=== PATIENT | female | born 1985 | race Caucasian/White ===

== ENCOUNTER 2018-07-03 10:00 | Inpatient (IN) | payer BC, OTHER ==
[2018-07-03] MEDS ORDERED: NIFEdipine 10 MG CAP PO PRN ×3 (11:11→11:29)
[2018-07-03] MEDS: BETAMETHASONE IM SYRINGE IM SCH (11:17)
--- NOTE | 2018-07-03 11:48 | PDGENHP ---
History and Physical - Chief Complaint labor - History of Present Illness Jasmine is a 32 yo G1 today at 32w4d by REMEDIOS of 08/24/18 by 9wk US (now c/w LMP, redated) who presented to L&D early this AM with painful, regular ctx's. She reports that she had been having some degree of painful cramping for this whole past week - was seen in clinic with the CNM's and had a cervical exam two days ago that was closed/reassuring, NST performed at that time not pickup up regular ctx's - advised to observe things, rest, hydrate. She reports that cramping intensified yesterday (Thursday) into today and she's newly noticed brown to light red bleeding that's been new this AM. Breathing through some but not all contractions upon arrival to the unit. No other obvious precipitating factors this past week. No illness, no trauma, etc. Has been feeling fine other than these menstrual like cramps. Denies any new UTI sx. Jasmine transferred care to [facility] two weeks ago at 30 wks from [facility]. 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 She has hypothyroidsm/Meg's, on 30mg Nature-Thyroid most recently. Also takes DHA and PNV. 20 wk anatomy scan: Normal anatomy, Posterior placenta. Male. Labs: A pos Antibody neg RPR reactive, but Trep neg Rubella immune Hep B neg HIV neg TSH 3.25 AFP normal Glucola 80 GBS unknown on admission History Information - Allergies/Home Medication List Allergies/Adverse Reactions: aspirin Allergy (Verified 07/03/18 11:01) Home Medications: Docosahexanoic Acid [Dha] 1 cap PO DAILY 07/03/18 [Last Taken Unknown] Herbals/Supplements -Info Only 1 ea PO DAILY 07/03/18 [Last Taken Unknown] Vit27&Calcium/Iron/FA [] 1 tab PO DAILY 07/03/18 [Last Taken Unknown] I have personally reviewed and updated: family history, medical history, social history, surgical history Past Medical History: Meg's thyroiditis - Surgical History Additional surgical history: None - Family History Positive for: non-pertinent - Social History Smoking Status: Never smoked Alcohol Use: None Drug Use: None Review of Systems Review of Systems: ROS: 10pt was reviewed & negative except for what was stated in HPI & below Physical Exam Physical Exam: On initial exam she appears comfortable, but nervous. She does breath through some contractions. Initial SCE by Nancy AVLARADO 2/bulging bag (no obvious presenting part). FHR 130s, mod donn, accels present by GA criteria, no decels. [place] q 5-7minutes. Beside by Nancy transverse position with head on maternal left. Lab Data & Imaging Review 07/03/18 11:45 Laboratory Tests 07/03/18 07/03/18 07/03/18 11:30 11:45 14:30 WBC 12.88 H Hgb 14.6 Hct 43.0 Plt Count 160 Urine Color YELLOW Urine Appearance CLEAR Urine pH 7.0 Ur Specific Bland 1.005 Urine Protein NEGATIVE Urine Ketones 1+ H Urine Blood NEGATIVE Urine Nitrate NEGATIVE Urine Bilirubin NEGATIVE Urine Urobilinogen NEGATIVE Ur Leukocyte Esterase NEGATIVE Urine Glucose NEGATIVE Angela species DNA Gardnerella DNA Probe Group B Strep DNA Pending Trichomonas DNA Probe 07/03/18 16:50 WBC Hgb Hct Plt Count Urine Color Urine Appearance Urine pH Ur Specific Bland Urine Protein Urine Ketones Urine Blood Urine Nitrate Urine Bilirubin Urine Urobilinogen Ur Leukocyte Esterase Urine Glucose Angela species DNA Pending Gardnerella DNA Probe Pending Group B Strep DNA Trichomonas DNA Probe Pending Assessment & Plan Assessment: 32 yo G1 at 32w4d who presents in labor, dilated to 2cm with bulging bag and regular painful ctx's. Clinically she does appear to be in early labor - having regular painful ctx's and vaginal bleeding. She has changed her cervix to 2cm and 75% from being closed in clinic just 2 days prior. Long discussion with Jasmine and Dk regarding dx of PTL and planned interventions. - Nifedipine IR loading protocol (20mg, then 10mg q 20 minutes until noticing change in pattern, max dose of 60mg) - followed by 10-20mg q 4-6 hrs maintenance after that. - BMZ x 2 now. - GBS collected, vaginitis panel collected, initial clean catch urine ? contaminated, straight cath collected. - NICU consult. - Discussed that position is currently transverse - we could potentially attempt a version if she does declare herself. I did call and speak with on- call [facility] physician at [place] who agreed that an attempt at version could be reasonable at this gestational age. - CEFM for now, NPO until we see how things settle down. - CBC, Type & Screen. - Cont nature thyroid. JM
[2018-07-03] MEDS: NIFEdipine 10 MG CAP PO PRN ×2 (12:02→12:36)
[2018-07-03 12:28] LABS: PLATELET COUNT 160 10^3/uL (150-400)
[2018-07-03] MEDS: LR 1,000 ML IV SCH ×2 (12:30→16:43)
[2018-07-03] MEDS: NIFEdipine 10 MG CAP PO SCH ×2 (16:28→20:26)
[2018-07-03] MEDS ORDERED: LIDOCAINE 1% 300 MG/30 ML SDV ONE (18:00)
[2018-07-03] MEDS ORDERED: TERBUTALINE SULFATE 1 MG/ML VIAL ONE (18:01)
[2018-07-03] MEDS ORDERED: OXYTOCIN 10 UNIT/ML VIAL ONE (18:01)
[2018-07-03] MEDS ORDERED: AMMONIA AROMATIC 1 EACH AMP IH ONE (18:01)
[2018-07-03] MEDS ORDERED: OLIVE OIL 118 ML BTL MISC ONE (18:01)
[2018-07-03] MEDS ORDERED: MISOPROSTOL 200 MCG TAB ONE (18:01)
[2018-07-04] MEDS: NIFEdipine 10 MG CAP PO SCH ×6 (00:31→21:04)
--- NOTE | 2018-07-04 07:00 | OBPROG ---
Labor Progress Note Assessment/Plan: Assessment: 32 yo G1 at 32w5d who presents in labor, dilated to 2cm with bulging bag and regular painful ctx's. - Continue Nifedipine IR loading protocol (20mg, then 10mg q 20 minutes until noticing change in pattern, max dose of 60mg) - followed by 10-20mg q 4-6 hrs maintenance after that. - BMZ#2 today, will be through her window tomorrow at 1100. - GBS and vaginitis panel pending. - NICU consult. - Discussed that position is currently transverse - we could potentially attempt a version if she does declare herself. I did call and speak with on- call [facility] physician at [place] who agreed that an attempt at version could be reasonable at this gestational age. - TID EFMs. - Cont nature thyroid. If stable through Thursday will discuss plan of care w M re ongoing tocolytic therapy, etc. PEPITO Subjective/Intrapartum Course: Jasmine is in good spirits this morning - happily reports that she really can't feel her contractions at all. Maybe a rare uncomfortable ctx, but otherwise quite comfortable. Tolerating the nifedipine quite well also, really no GILLESPIE or side effects. Objective: 07/03/18 11:45 Patient ABO/Rh A POSITIVE 07/03/18 11:45 - FHR Assessment Riley FHR (bpm): 135 FHR Pattern Variability: Moderate FHR Category: 1 Oxytocin Orders Assessment - Pre-Induction/Augmentation Assessment Gestational Age: 32 week(s) and 4 day(s) ICD10 Worksheet Patient Problems: Problems Problem Status Onset Malpresentation of fetus Acute labor Acute uterine contractions in third trimester, antepartum Acute Status post primary low transverse section Acute
[2018-07-04] MEDS: THYROID 15 MG PO SCH (09:13)
[2018-07-04] MEDS: BETAMETHASONE IM SYRINGE IM SCH (11:07)
[2018-07-04] MEDS ORDERED: PRENATAL VIT 1 EACH TAB PO SCH (16:45)
[2018-07-04] MEDS: PRENATAL VIT 1 EACH TAB PO SCH (16:58)
[2018-07-04] MEDS ORDERED: DOCUSATE SODIUM 100 MG CAP PO ONE (17:03)
--- NOTE | 2018-07-04 20:01 | OBPROG ---
Labor Progress Note Assessment/Plan: Assessment: 32 y/o @ 32 4/7 weeks wth PTCs and cervical change upon admission - stable now HD #1 Plan: Continue current management GBS cx is negative Urine cx and BD affirm negative Pt is tolerating Nifedipine well, with no side effects FHTs - Cat II tracing with intermittent mild variable decels, but overall reassuring; continuous monitoring for now On toco, irritiability is noted and pt states 3 ctx's/hour and mild "more annoying" SCDs while in bed Will reassess in am 07/05 and if no further ctx's and pt remains stable, plan for d/c home with Procardia 07/04/18 20:08 Subjective/Intrapartum Course: Jasmine is in good spirits this morning - happily reports that she really can't feel her contractions at all. Maybe a rare uncomfortable ctx, but otherwise quite comfortable. Tolerating the nifedipine quite well also, really no GILLESPIE or side effects. 07/04/18 20:05 Pt is doing well with her at her side. States ctx's are mild 2/10 and "more annoying." She has felt them intermittently and at the most 3 ctx's/hr. Denies any LOF or any VB. Good FM noted by baby boy. Reviewed all negative testing results. Objective: 07/03/18 11:45 Patient ABO/Rh A POSITIVE 07/03/18 11:45 Group B Strep DNA NEGATIVE (NEGATIVE) 07/03/18 11:30 - Contraction Pattern Assessment Current Contraction Pattern: Other (Specify) (irritability) - FHR Assessment Riley FHR (bpm): 135 FHR Pattern Variability: Moderate FHR Category: 2 (intermittent mild variable decel) - Physical Exam General Appearance: WD/WN, alert, no apparent distress Abdomen: non-tender, soft, other (Gravid) Skin: normal color, warm/dry Neuro/Psych: alert, normal mood/affect, oriented x 3 Oxytocin Orders Assessment - Pre-Induction/Augmentation Assessment Gestational Age: 32 week(s) and 4 day(s) ICD10 Worksheet Patient Problems: Problems Problem Status Onset uterine contractions in third trimester, antepartum Acute - ICD10 Problem Qualifiers (1) uterine contractions in third trimester, antepartum
[2018-07-04] MEDS: DOCUSATE SODIUM 100 MG CAP PO SCH (21:03)
[2018-07-05] MEDS: NIFEdipine 10 MG CAP PO SCH ×6 (00:42→21:05)
[2018-07-05] MEDS: LR 1,000 ML IV SCH (05:47)
[2018-07-05] MEDS: PRENATAL VIT 1 EACH TAB PO SCH (09:08)
[2018-07-05] MEDS: THYROID 15 MG PO SCH (09:08)
[2018-07-05] MEDS: DOCUSATE SODIUM 100 MG CAP PO SCH ×2 (09:09→21:06)
--- NOTE | 2018-07-05 09:56 | OBPROG ---
Labor Progress Note Assessment/Plan: Assessment: 32 y/o @ 32 6/7 weeks wth PTCs and cervical change upon admission - stable now HD #2 Plan: Continue current management GBS cx is negative Urine cx and BD affirm negative s/p BTMZ 07/03 and 07/04 Pt is tolerating Nifedipine well, but did note increase, painful ctx's 1 hour before next dose was due, around midnight and now much improved FHTs - Cat II tracing with intermittent mild variable decels that became deeper and occ late decels; resuscitation performed-oxygen applied, fluid bolus and position change to left side with improvement in the strip and resolution in deep variable decels and late decels Strip is now reassuring with accels and moderate variability; will take off the monitor and do BID monitoring Plan for consult and u/s with MFM in am 07/0607/05/18 09:56 Subjective/Intrapartum Course: Jasmine is in good spirits this morning - happily reports that she really can't feel her contractions at all. Maybe a rare uncomfortable ctx, but otherwise quite comfortable. Tolerating the nifedipine quite well also, really no GILLESPIE or side effects. 07/04/18 20:05 Pt is doing well with her at her side. States ctx's are mild 2/10 and "more annoying." She has felt them intermittently and at the most 3 ctx's/hr. Denies any LOF or any VB. Good FM noted by baby boy. Reviewed all negative testing results. 07/05/18 10:00 Pt is feeling much better this morning, no further painful ctx's at this time. She had painful, regular ctx's around midnight with pain 8/10 one hour before Nifedipine dose was due. Good FM noted. Denies any LOF or VB. Alonso regular diet and had BM yesterday am. Objective: 07/03/18 11:45 Patient ABO/Rh A POSITIVE 07/03/18 11:45 Group B Strep DNA NEGATIVE (NEGATIVE) 07/03/18 11:30 - Contraction Pattern Assessment Current Contraction Pattern: Irregular - FHR Assessment Riley FHR (bpm): 135 FHR Pattern Variability: Moderate FHR Category: 1 - Physical Exam General Appearance: WD/WN, alert, no apparent distress Abdomen: non-tender, soft, other (gravid) Extremities: non-tender, normal inspection Skin: normal color, warm/dry Neuro/Psych: alert, normal mood/affect, oriented x 3 Oxytocin Orders Assessment - Pre-Induction/Augmentation Assessment Gestational Age: 32 week(s) and 4 day(s) ICD10 Worksheet Patient Problems: Problems Problem Status Onset uterine contractions in third trimester, antepartum Acute - ICD10 Problem Qualifiers (1) uterine contractions in third trimester, antepartum
[2018-07-05] MEDS: PRENATAL DHA PO SCH (17:08)
[2018-07-05] MEDS: ZINC GLUCONATE 30 MG PO SCH (17:12)
[2018-07-05] MEDS: Lactobacillus Acidophilus [Probiotic] 1 EACH PO SCH (17:13)
[2018-07-05] MEDS: SELENIUM 0.2 MG TAB PO SCH ×2 (17:14→17:15)
[2018-07-06] MEDS: NIFEdipine 10 MG CAP PO SCH ×4 (01:06→16:28)
[2018-07-06] MEDS: PRENATAL DHA PO SCH (09:30)
[2018-07-06] MEDS: DOCUSATE SODIUM 100 MG CAP PO SCH ×2 (09:30→21:41)
[2018-07-06] MEDS: THYROID 15 MG PO SCH (09:31)
[2018-07-06] MEDS: ZINC GLUCONATE 30 MG PO SCH (09:31)
[2018-07-06] MEDS: Lactobacillus Acidophilus [Probiotic] 1 EACH PO SCH (09:32)
[2018-07-06] MEDS: SELENIUM 0.2 MG TAB PO SCH (09:33)
--- NOTE | 2018-07-06 11:25 | OBPROG ---
Labor Progress Note Assessment/Plan: Assessment: 32 y/o @ 33 weeks with PTCs and cervical change upon admission - stable now HD #3 Plan: Continue current management Pt had changed her cervix to 2 cm and 75% from being closed in clinic just 2 days prior to admission on 07/03 GBS cx is negative Final urine cx and BD affirm negative s/p BTMZ 07/03 and 07/04 No FFN or u/s done for CL upon admission; will obtain FFN now since nothing in the vagina x 24 hours Pt is still tolerating Nifedipine well, but felt a "little queezy" this morning after getting it; she is getting it every 4 hours Pt states ctx's have been around every 5-6 minutes throughout size changer and pain 8/10; right now she is laying on her side and ctx's are not as painful - pt looks comfortable; no SVE done and ctx's palpate mild FHTs - Cat II tracing with intermittent mild variable decels, but reassuring with +accels and mod variability Plan for consult and u/s with MFM later this afternoon 07/06/18 11:31 Subjective/Intrapartum Course: Jasmine is in good spirits this morning - happily reports that she really can't feel her contractions at all. Maybe a rare uncomfortable ctx, but otherwise quite comfortable. Tolerating the nifedipine quite well also, really no GILLESPIE or side effects. 07/04/18 20:05 Pt is doing well with her at her side. States ctx's are mild 2/10 and "more annoying." She has felt them intermittently and at the most 3 ctx's/hr. Denies any LOF or any VB. Good FM noted by baby boy. Reviewed all negative testing results. 07/05/18 10:00 Pt is feeling much better this morning, no further painful ctx's at this time. She had painful, regular ctx's around midnight with pain 8/10 one hour before Nifedipine dose was due. Good FM noted. Denies any LOF or VB. Alonso regular diet and had BM yesterday am. 07/06/18 11:33 Pt seen and examined. She is resting on her left side; states ctx's were about every 5-6 min early this morning and pain 8/10; better now since on her side and receiving Procardia at 0900. She did feel a little nauseated after taking it , but no vomiting. Good FM noted. Denies any LOF or VB. Objective: 07/03/18 11:45 Patient ABO/Rh A POSITIVE 07/03/18 11:45 Group B Strep DNA NEGATIVE (NEGATIVE) 07/03/18 11:30 - Contraction Pattern Assessment Current Contraction Pattern: Irregular (q5-8 minutes) - FHR Assessment Riley FHR (bpm): 140 FHR Pattern Variability: Moderate FHR Category: 2 (mild intermitttent variable decels with lj to 110 bpm) - Physical Exam General Appearance: WD/WN, alert, no apparent distress Abdomen: non-tender, soft, other (gravid) Extremities: non-tender, normal inspection Skin: normal color, warm/dry Neuro/Psych: alert, normal mood/affect, oriented x 3 Oxytocin Orders Assessment - Pre-Induction/Augmentation Assessment Gestational Age: 32 week(s) and 4 day(s) ICD10 Worksheet Patient Problems: Problems Problem Status Onset uterine contractions in third trimester, antepartum Acute - ICD10 Problem Qualifiers (1) uterine contractions in third trimester, antepartum
[2018-07-06] MEDS: PRENATAL VIT 1 EACH TAB PO SCH (11:54)
[2018-07-06] MEDS ORDERED: ceFAZolin 2 GM/DEXTROSE 100 ML IV ONE (13:07)
[2018-07-06] MEDS ORDERED: LR 500 ML IV ONE (13:07)
--- NOTE | 2018-07-06 13:07 | OBPROG ---
Labor Progress Note Assessment/Plan: Assessment: 32 y/o @ 33 weeks with PTCs and cervical change upon admission Now with painful, regular ctx's and further cervical change HD #3 Plan: Pt is breathing through her ctx's now and more regular and painful over the last hour On exam, SVE: 4/100/-2 Bedside u/s: Transverse lie with back up, head maternal left Discussed proceeding with PCS secondary to recent cervical change and now in labor Surgical consents obtained; R/B/A reviewed with pt including but not limited to bleeding, infection and damage to surrounding organs; pt understands all risks of the procedure and wants to proceed to OR Abx zoning engineer to OR: Ancef and will add Zithromax since she's laboring Anesthesiologist notified as well as BODY ARTIST 07/06/18 13:10 Subjective/Intrapartum Course: Jasmine is in good spirits this morning - happily reports that she really can't feel her contractions at all. Maybe a rare uncomfortable ctx, but otherwise quite comfortable. Tolerating the nifedipine quite well also, really no GILLESPIE or side effects. 07/04/18 20:05 Pt is doing well with her at her side. States ctx's are mild 2/10 and "more annoying." She has felt them intermittently and at the most 3 ctx's/hr. Denies any LOF or any VB. Good FM noted by baby boy. Reviewed all negative testing results. 07/05/18 10:00 Pt is feeling much better this morning, no further painful ctx's at this time. She had painful, regular ctx's around midnight with pain 8/10 one hour before Nifedipine dose was due. Good FM noted. Denies any LOF or VB. Alonso regular diet and had BM yesterday am. 07/06/18 11:33 Pt seen and examined. She is resting on her left side; states ctx's were about every 5-6 min early this morning and pain 8/10; better now since on her side and receiving Procardia at 0900. She did feel a little nauseated after taking it , but no vomiting. Good FM noted. Denies any LOF or VB. 07/06/18 13:13 Pt is c/o more regular, painful ctx's over the last hour. She notes some pinkish spotting when she wipes. Good FM noted. Objective: 07/03/18 11:45 Patient ABO/Rh A POSITIVE 07/03/18 11:45 Group B Strep DNA NEGATIVE (NEGATIVE) 07/03/18 11:30 - SVE Dilation (cm): 4 Effacement (%): 100 Station: -2 Membranes: Intact - Contraction Pattern Assessment Current Contraction Pattern: Regular (q3-5min) - FHR Assessment Riley FHR (bpm): 135 FHR Pattern Variability: Moderate FHR Category: 2 (mild intermittent variable decels) Oxytocin Orders Assessment - Pre-Induction/Augmentation Assessment Gestational Age: 32 week(s) and 4 day(s) ICD10 Worksheet Patient Problems: Problems Problem Status Onset uterine contractions in third trimester, antepartum Acute - ICD10 Problem Qualifiers (1) uterine contractions in third trimester, antepartum
[2018-07-06] MEDS ORDERED: AZITHROMYCIN IV 500 MG in NS 250 ML IV ONE (13:08)
[2018-07-06] MEDS ORDERED: ACETAMINOPHEN 500 MG TAB PO ONE (13:15)
[2018-07-06] MEDS ORDERED: ACETAMINOPHEN 500 MG TAB ONE (13:17)
[2018-07-06] MEDS: LR 1,000 ML IV SCH (13:29)
[2018-07-06] MEDS ORDERED: LR 1,000 ML IV SCH (13:30)
--- NOTE | 2018-07-06 13:54 | PREANESOB ---
Obstetric Pre-Anesthesia Info - General Info Proposed Procedure: primary C/S : 1 Para: 0 REMEDIOS: 08/24/18 Gestational Age: 32 week(s) and 4 day(s) - Info Status: Premature, Malpresentation Monitors: External - Labor Status Cervical Dilation per last OB SVE: 4 Station per last OB SVE: -2 PIH: No Section History: Primary Indications for Current Section: Abnormal Lie Labor Epidural: No Anesthesia ROS: h/o hypothyroidism Allergies/Adverse Reactions: Allergy/AdvReac Type Severity Reaction Status Date / Time aspirin Allergy Verified 07/03/18 11:01 Home Medications: Medication Instructions Recorded Docosahexanoic Acid [Dha] 1 cap PO DAILY 07/03/18 Herbals/Supplements -Info Only 1 ea PO DAILY 07/03/18 Vit27&Calcium/Iron/FA 1 tab PO DAILY 07/03/18 [] Lactobacillus Acidophilus 1 each PO DAILY 07/05/18 [Probiotic] Dha 2 ea PO DAILY 07/05/18 Selenium [Selenium 200mcg (*)] 200 mcg PO DAILY 07/05/18 Zinc Gluconate [Zinc] 30 mg PO DAILY 07/05/18 Visit Medications: Generic Name Dose Route Start Last Admin Trade Name Sigrid PRN Reason Stop Dose Admin Docusate Sodium 100 mg 07/04/18 21:00 07/06/18 09:30 Colace PO 12/31/18 20:59 100 mg BID LIS Administration Lactated Ringer's 1,000 mls @ 0 mls/hr 07/03/18 11:30 07/06/18 13:29 Lr IV 12/30/18 11:29 1,000 mls CONT LIS Administration Wide Open Azithromycin 500 mg/ Sodium 255 mls @ 255 mls/hr 07/06/18 13:08 07/06/18 13: 38 Chloride IV 07/06/18 14:07 255 mls ONCE ONE Administration Protocol Lactated Ringer's 1,000 mls @ 125 mls/hr 07/06/18 13:30 Lr IV 07/07/18 13:29 CONT LIS Miscellaneous Medication 1 ea 07/04/18 10:00 07/06/18 09:31 Non-Formulary PO 12/31/18 09:59 1 mg DAILY@1000 LIS Administration Miscellaneous Medication 1 each 07/06/18 09:00 07/06/18 09:32 Lactobacillus Acidophilus [Probiotic] PO 01/02/19 08:59 1 cap DAILY LIS Administration Miscellaneous Medication 2 ea 07/06/18 09:00 07/06/18 09:30 Dha PO 01/02/19 08:59 2 cap DAILY LIS Administration Miscellaneous Medication 30 mg 07/06/18 09:00 07/06/18 09:31 Zinc Gluconate [Zinc] PO 01/02/19 08:59 1 cap DAILY LIS Administration Selenium 0.2 mg 07/06/18 09:00 07/06/18 09:33 Selenium PO 01/02/19 08:59 0.2 mg DAILY LIS Administration Discontinued Medications Generic Name Dose Route Start Last Admin Trade Name Sigrid PRN Reason Stop Dose Admin Acetaminophen 1,000 mg 07/06/18 13:15 07/06/18 13:28 Tylenol PO 07/06/18 13:16 1,000 mg ONCE ONE Administration Acetaminophen Confirm 07/06/18 13:17 Tylenol Administered 07/06/18 13:18 Dose 1,000 mg .ROUTE .STK-MED ONE Ammonia (Aromatic Spirit) Confirm 07/03/18 18:01 Ammonia Aromatic Administered 07/03/18 18:02 Dose 1 each IH .STK-MED ONE Betamethasone Acet/Betameth SodPhos 12 mg 07/03/18 11:15 07/04/18 11:07 Celestone Im Syringe IM 07/04/18 11:16 12 mg Q24H LIS Administration Docusate Sodium Confirm 07/04/18 17:03 Colace Administered 07/04/18 17:04 Dose 100 mg PO .STK-MED ONE Cefazolin Sodium/Dextrose 100 mls @ 200 mls/hr 07/06/18 13:07 Ancef IV 07/06/18 13:36 ONCALL ONE Protocol Lactated Ringer's 500 mls @ 0 mls/hr 07/06/18 13:07 Lr IV 07/06/18 13:08 ONCE ONE As Directed Lidocaine HCl Confirm 07/03/18 18:00 Lidocaine Hcl 1% Administered 07/03/18 18:01 Dose 300 mg .ROUTE .STK-MED ONE Misoprostol Confirm 07/03/18 18:01 Cytotec Administered 07/03/18 18:02 Dose 1,000 mcg .ROUTE .STK-MED ONE Nifedipine 20 mg 07/03/18 11:25 07/03/18 11:42 Procardia PO 20 mg ONCE PRN Administration Contractions Nifedipine 10 mg 07/03/18 11:33 07/03/18 12:36 Procardia PO 10 mg .Q20 MINUTES PRN Administration Contraction Nifedipine 10 - 20 mg 07/03/18 11:29 Procardia PO 12/30/18 11:28 Q4 PRN Contractions Nifedipine 10 mg 07/03/18 14:00 07/06/18 09:29 Procardia PO 12/30/18 13:59 10 mg Q4HRS LIS Administration Yolyn Oil Confirm 07/03/18 18:01 Sweet Oil Administered 07/03/18 18:02 Dose 118 ml MISC .STK-MED ONE Oxytocin Confirm 07/03/18 18:01 Pitocin Administered 07/03/18 18:02 Dose 40 unit .ROUTE .STK-MED ONE Prenat Multivit/[place]/Iron/Folic Ac 1 each 07/04/18 16:45 PO 12/31/18 16:44 DAILY LIS Prenat Multivit/Vp Talent Management/Iron/Folic Ac 1 each 07/04/18 17:00 07/06/18 11:54 PO 12/31/18 16:44 Not Given DAILY LIS Terbutaline Sulfate Confirm 07/03/18 18:01 Brethine Administered 07/03/18 18:02 Dose 1 mg .ROUTE .STK-MED ONE - Vital Signs Latest Vital Signs (Nursing): See commercial lending assistant. Height/Weight (Nursing): Height 170.18 cm Weight 71.214 kg - Focused Exam Neck exam: FROM Mallampati Score: Class 3 Mouth exam: normal dental/mouth exam Pulmonary: clear to auscultation Cardiovascular: regular rate and rhythym Labs: 07/03/18 11:45 Patient ABO/Rh A POSITIVE 07/03/18 11:45 Group B Strep DNA NEGATIVE (NEGATIVE) 07/03/18 11:30 - Plan Consent Signed and on Chart: Yes General Comments: Due to fast progress of labor, OB calling the C/S emergent.
--- NOTE | 2018-07-06 13:59 | OBPROG ---
Labor Progress Note Assessment/Plan: Assessment: 32 y/o @ 33 weeks with PTCs and cervical change upon admission Now with painful, regular ctx's and further cervical change HD #3 Plan: Pt is in the room with her floor framer who is trying some spinning babies Pt is still breathing through her ctx's and appears uncomfortable Pt requests repeat bedside u/s that confirms baby remains in transverse lie with back up and head on maternal left Want to proceed with c/s now since pt is in active labor and remains transverse lie and do not want to wait 8 hours after she last ate something; pt is aware of risks 07/06/18 13:55 Subjective/Intrapartum Course: Jasmine is in good spirits this morning - happily reports that she really can't feel her contractions at all. Maybe a rare uncomfortable ctx, but otherwise quite comfortable. Tolerating the nifedipine quite well also, really no GILLESPIE or side effects. 07/04/18 20:05 Pt is doing well with her at her side. States ctx's are mild 2/10 and "more annoying." She has felt them intermittently and at the most 3 ctx's/hr. Denies any LOF or any VB. Good FM noted by baby boy. Reviewed all negative testing results. 07/05/18 10:00 Pt is feeling much better this morning, no further painful ctx's at this time. She had painful, regular ctx's around midnight with pain 8/10 one hour before Nifedipine dose was due. Good FM noted. Denies any LOF or VB. Alonso regular diet and had BM yesterday am. 07/06/18 11:33 Pt seen and examined. She is resting on her left side; states ctx's were about every 5-6 min early this morning and pain 8/10; better now since on her side and receiving Procardia at 0900. She did feel a little nauseated after taking it , but no vomiting. Good FM noted. Denies any LOF or VB. 07/06/18 13:13 Pt is c/o more regular, painful ctx's over the last hour. She notes some pinkish spotting when she wipes. Good FM noted. Objective: 07/03/18 11:45 Patient ABO/Rh A POSITIVE 07/03/18 11:45 Group B Strep DNA NEGATIVE (NEGATIVE) 07/03/18 11:30 Temp Pulse Resp BP Pulse Ox 37.1 C 61 16 105/68 07/06/18 13:20 07/06/18 13:20 07/06/18 13:20 07/06/18 13:20 - SVE Membranes: Intact - Contraction Pattern Assessment Current Contraction Pattern: Regular (q3-5min) Oxytocin Orders Assessment - Pre-Induction/Augmentation Assessment Gestational Age: 32 week(s) and 4 day(s) ICD10 Worksheet Patient Problems: Problems Problem Status Onset uterine contractions in third trimester, antepartum Acute - ICD10 Problem Qualifiers (1) uterine contractions in third trimester, antepartum
[2018-07-06] MEDS ORDERED: BUPIVACAINE/DEXTROSE 7.5MG/ML 2 ML SPINAL AMP SP ONE (14:11)
[2018-07-06] MEDS ORDERED: morphINE PF 5 MG/10 ML INJ ONE (14:11)
[2018-07-06] MEDS ORDERED: OXYTOCIN 100 UNITS/10 ML VIAL ONE (14:15)
[2018-07-06] MEDS ORDERED: RANITIDINE 50 MG/2 ML VIAL ONE (14:50)
[2018-07-06] MEDS ORDERED: PHENYLEPHRINE HCL 100 MCG/ML SYR ONE (15:11)
[2018-07-06] MEDS: KETOROLAC 30 MG/1 ML SDV IVP SCH ×3 (15:45→21:41)
[2018-07-06] MEDS ORDERED: POLYETHYLENE GLYCOL 3350 17 GM PKT PO PRN (15:47)
[2018-07-06] MEDS ORDERED: MAGNESIUM HYDROXIDE 30 ML UDCUP PO PRN (15:47)
[2018-07-06] MEDS ORDERED: BISACODYL 10 MG SUPP PR PRN (15:47)
[2018-07-06] MEDS ORDERED: SIMETHICONE 80 MG TAB CHEW PO PRN (15:47)
[2018-07-06] MEDS ORDERED: LACTULOSE 20 GM/30 ML UDCUP PO PRN (15:47)
--- NOTE | 2018-07-06 15:53 | OBDEL ---
Info Type: Primary Presentation at Delivery: Breech (Vincent breech) L&D Analgesia/Anesthesia Type: Spinal GBS+: No Intrapartum Medications: Generic Name Dose Route Start Last Admin Trade Name Sigrid PRN Reason Stop Dose Admin Docusate Sodium 100 mg 07/04/18 21:00 07/06/18 09:30 Colace PO 12/31/18 20:59 100 mg BID LIS Administration Lactated Ringer's 1,000 mls @ 0 mls/hr 07/03/18 11:30 07/06/18 13:29 Lr IV 12/30/18 11:29 1,000 mls CONT LIS Administration Wide Open Miscellaneous Medication 1 ea 07/04/18 10:00 07/06/18 09:31 Non-Formulary PO 12/31/18 09:59 1 mg DAILY@1000 LIS Administration Miscellaneous Medication 1 each 07/06/18 09:00 07/06/18 09:32 Lactobacillus Acidophilus [Probiotic] PO 01/02/19 08:59 1 cap DAILY LIS Administration Miscellaneous Medication 2 ea 07/06/18 09:00 07/06/18 09:30 Dha PO 01/02/19 08:59 2 cap DAILY LIS Administration Miscellaneous Medication 30 mg 07/06/18 09:00 07/06/18 09:31 Zinc Gluconate [Zinc] PO 01/02/19 08:59 1 cap DAILY LIS Administration Selenium 0.2 mg 07/06/18 09:00 07/06/18 09:33 Selenium PO 01/02/19 08:59 0.2 mg DAILY LIS Administration Discontinued Medications Generic Name Dose Route Start Last Admin Trade Name Sigrid PRN Reason Stop Dose Admin Acetaminophen 1,000 mg 07/06/18 13:15 07/06/18 13:28 Tylenol PO 07/06/18 13:16 1,000 mg ONCE ONE Administration Betamethasone Acet/Betameth SodPhos 12 mg 07/03/18 11:15 07/04/18 11:07 Celestone Im Syringe IM 07/04/18 11:16 12 mg Q24H LIS Administration Azithromycin 500 mg/ Sodium 255 mls @ 255 mls/hr 07/06/18 13:08 07/06/18 13: 38 Chloride IV 07/06/18 14:07 255 mls ONCE ONE Administration Protocol Cefazolin Sodium/Dextrose 100 mls @ 200 mls/hr 07/06/18 13:07 07/06/18 14:12 Ancef IV 07/06/18 13:36 100 mls ONCALL ONE Administration Protocol Nifedipine 20 mg 07/03/18 11:25 07/03/18 11:42 Procardia PO 20 mg ONCE PRN Administration Contractions Nifedipine 10 mg 07/03/18 11:33 07/03/18 12:36 Procardia PO 10 mg .Q20 MINUTES PRN Administration Contraction Nifedipine 10 mg 07/03/18 14:00 07/06/18 09:29 Procardia PO 12/30/18 13:59 10 mg Q4HRS LIS Administration Prenat Multivit/Core Cutter/Iron/Folic Ac 1 each 07/04/18 17:00 07/06/18 11:54 PO 12/31/18 16:44 Not Given DAILY LIS - Care Provider Car Barn Laborer/PEDIATRIC HOSPITALIST: Jolie Fletcher - Hospital Course Intrapartum: Jasmine is in good spirits this morning - happily reports that she really can't feel her contractions at all. Maybe a rare uncomfortable ctx, but otherwise quite comfortable. Tolerating the nifedipine quite well also, really no GILLESPIE or side effects. 07/04/18 20:05 Pt is doing well with her at her side. States ctx's are mild 2/10 and "more annoying." She has felt them intermittently and at the most 3 ctx's/hr. Denies any LOF or any VB. Good FM noted by baby boy. Reviewed all negative testing results. 07/05/18 10:00 Pt is feeling much better this morning, no further painful ctx's at this time. She had painful, regular ctx's around midnight with pain 8/10 one hour before Nifedipine dose was due. Good FM noted. Denies any LOF or VB. Alonso regular diet and had BM yesterday am. 07/06/18 11:33 Pt seen and examined. She is resting on her left side; states ctx's were about every 5-6 min early this morning and pain 8/10; better now since on her side and receiving Procardia at 0900. She did feel a little nauseated after taking it , but no vomiting. Good FM noted. Denies any LOF or VB. 07/06/18 13:13 Pt is c/o more regular, painful ctx's over the last hour. She notes some pinkish spotting when she wipes. Good FM noted. Indications for Delivery: Spontaneous Labor (U/S confirmed malpresentation- transverse lie; labor at 33 weeks) Vaginal Delivery - Labor and Delivery Onset of Contractions Date: 07/01/18 Onset of Contractions Time: 10:00 Cord Gases: Cord Gases Cord Blood PCO2 70 mmHg (37-60) H 07/06/18 14:54 Cord Base Excess -9.1 mEq/L (-13.6--3.2) 07/06/18 14:54 Cord ABG pH 7.13 (7.10-7.37) 07/06/18 14:54 Cord VBG pH 7.23 (7.20-7.42) 07/06/18 14:54 Operative Report - Delivery Pre-op Diagnoses: IUP @ 33 weeks with PTCs who progressed to spontaneous labor, u/s confirmed malpresentation-transverse lie Post-op Diagnoses: IUP @ 33 weeks with PTCs who progressed to spontaneous labor ; u/s confirmed malpresentation-transverse lie; vincent breech upon delivery History of Prior Section: No Number of Prior Sections: 0 Nulliparous Prior to Delivery: Yes Indications for Current Section: Abnormal Lie (u/s confirmed transverse lie, back up), Other (Specify) (Spontaneous labor at 33 weeks) Procedure: Unscheduled, Low Transverse Surgeon: Danay Harris Production Line Manager: Natalya Gee Anesthesiologist: Cinthia Nieves Complications: None Findings: A viable male infant at 33 weeks who delivered via LTCS @1454 with 1 and 8 Apgars in vincent breech presentation under spinal anesthesia. There was difficulty in delivering baby secondary to baby being wedged down in the pelvis presenting as vincent breech. Baby was finally able to be delivered via routine breech maneuvers. Cord was clamped x2 right away and cut. [facility] to [facility] PEDIATRIC HOSPITALIST. Cord gases were obtained as well as cord bloods. Placenta delivered spontaneously intact with 3-vc. Inspection of uterus, tubes and ovaries revealed normal anatomy. Upon inspection of hysterotomy there was an extension on left side that was repaired without difficulty. EBL 800 cc. Pt alonso well. No complications. Baby sent to NICU. Mom left in stable condition. Specimen(s)/Path: Other (Specify) (none) IV Fluid (ml): 1,700 EBL: 800cc UO: 100 cc clear urine at end Cord Gases: Cord Gases Cord Blood PCO2 70 mmHg (37-60) H 07/06/18 14:54 Cord Base Excess -9.1 mEq/L (-13.6--3.2) 07/06/18 14:54 Cord ABG pH 7.13 (7.10-7.37) 07/06/18 14:54 Cord VBG pH 7.23 (7.20-7.42) 07/06/18 14:54 Data REMEDIOS: 08/24/18 Gestational Age: 33 week(s) and 0 day(s) [facility] Delivery Date: 07/06/18 Delivery Time: 14:54 Sex of : Male Score (1 Min): 1 Score (5 Min): 8 ICD10 Worksheet Patient Problems: Problems Problem Status Onset Malpresentation of fetus Acute labor Acute uterine contractions in third trimester, antepartum Acute Status post primary low transverse section Acute - ICD10 Problem Qualifiers (1) uterine contractions in third trimester, antepartum (2) labor Qualifiers: labor trimester: third trimester labor delivery status: with delivery in third trimester Fetus number: single or unspecified fetus Qualified Code(s): O60.14X0 - labor third trimester with delivery third trimester, not applicable or unspecified (3) Malpresentation of fetus Qualifiers: malpresentation type: breech Fetus number: single or unspecified fetus Qualified Code(s): O32.1XX0 - Maternal care for breech presentation, not applicable or unspecified (4) Status post primary low transverse section
[2018-07-06] MEDS ORDERED: ONDANSETRON 4 MG/2 ML VIAL IVP PRN (16:13)
[2018-07-06] MEDS ORDERED: NALOXONE HCL 0.4 MG/ML INJ IVP PRN ×2 (16:13)
[2018-07-06] MEDS ORDERED: fentaNYL 100 MCG/2 ML INJ IVP PRN (16:13)
[2018-07-06] MEDS ORDERED: METOCLOPRAMIDE 10 MG/2 ML VIAL IVP PRN (16:13)
--- NOTE | 2018-07-06 16:16 | POSTANESTH ---
Post Anesthetic Evaluation Cardiovascular Status: Normal, Stable Respiratory Status: Normal, Stable Level of Consciousness/Mental Status: Can Participate in Eval, Alert and Oriented Pain Control: Adequate, Prn Tx Ordered Nausea/Vomiting Control: Adequate, Prn Tx Ordered Complications Possibly Related to Anesthesia: None Noted Notes: Pt is aware of abdomen, but not feelings any pain yet.
--- NOTE | 2018-07-06 18:06 | GOP ---
[f rep st] OPERATIVE REPORT DATE OF OPERATION: 07/06/2018 SURGEON: Danay Harris DO URBAN GARDENING SPECIALIST: MANISHA Baez. ANESTHESIA: Spinal. ANESTHESIOLOGIST: Cinthia Nieves MD. PREOPERATIVE DIAGNOSIS: 1. Intrauterine at 33 weeks with contractions who progressed to spontaneous labor. 2. Ultrasound confirmed malpresentation with transverse lie, back up. POSTOPERATIVE DIAGNOSIS: 1. Intrauterine at 33 weeks with contractions who progressed to spontaneous labor. 2. Ultrasound confirmed malpresentation with transverse lie, back up. 3. Vincent breech upon delivery. PROCEDURE PERFORMED: Primary low transverse section. FINDINGS: A viable male infant at 33 weeks, who delivered at 1454 hours , with 1 and 8 Apgars in vincent breech presentation under spinal anesthesia. Difficulty delivering baby secondary to baby being wedged down in the pelvis, presenting as vincent breech. Baby was finally able to be delivered by routine breech maneuvers. Cord was clamped x2, right away and then cut. to waiting CAMP PROGRAM DIRECTOR. Cord gases were obtained as well as cord bloods. Placenta delivered spontaneously intact with 3-vessel cord. Inspection of uterus, tubes and ovaries revealed normal anatomy. Upon inspection of the hysterotomy, there was an extension of the left side that was repaired without difficulty. Patient tolerated the procedure well. No complications. Baby sent to the NICU. SPECIMENS: None. ESTIMATED BLOOD LOSS: 800 cc. INDICATIONS: The patient is a 32-year-old, G1, P0, at 33 weeks today who presented 3 days ago with complaints of contractions and was noted to progress to 2 cm and 75%. She was seen by the midwives 2 days prior to admission, and was noted to be closed on exam. Patient stated good movement and denies any leakage of fluid or vaginal bleeding. Patient was given steroids, received 2 doses on 07/03/2018, and 07/04/2018. GBS culture was collected and negative. Urine culture was done and final was negative. BD affirm was collected and negative as well. Patient was started on Procardia, given a loading dose and then 10 mg every 4 hours. She was stable over 48 hours , and then today at 0600 noted contractions getting more frequent, every 3-5 minutes, and pain again at 8/10. Patient was re-examined, and found to be 4 cm and 100% effaced. Bedside ultrasound confirmed baby was still transverse, back up, with head on maternal left side. Discussed proceeding with a C- section urgently secondary to being in active labor and malpresentation. Discussed risks, benefits, and alternatives of the procedure including, but not limited to, bleeding, infection, and damage to surrounding organs. Patient understands all risks at this time and wants to proceed to OR. Patient was properly consented. DESCRIPTION OF PROCEDURE: Patient was taken back to the operating room where spinal anesthesia was obtained without difficulty. Patient was placed in dorsal supine position with a leftward-tilt on operating table and prepped and draped in normal sterile fashion. Norman catheter was placed at this time and SCDs were placed on her legs. After WHO time-out was performed, a Pfannenstiel skin incision was then made with a scalpel and carried through the underlying layer of fascia using the Bovie. Fascia was then incised in midline and extended laterally using the Bhakta scissors. Lyla clamps were then used to elevate the superior aspect of fascial incision, which was elevated, and underlying rectus muscles dissected using sharp dissection with Bhakta scissors. Attention was then turned to the inferior aspect of the fascia, which in a similar fashion was grasped with Lyla clamps, elevated and underlying rectus muscle dissected off using Bhakta scissors. Rectus muscles were then dissected in the midline. Peritoneum was identified, and entered bluntly. The incision was then extended superiorly and inferiorly with good visualization of the bladder. Bladder blade was then inserted. Vesicouterine peritoneum was then identified, and entered sharply using Metzenbaum scissors, and this incision was then extended laterally and a bladder flap was created digitally. Bladder blade was then reinserted. The lower uterine segment was identified, and incised in low transverse fashion, and the incision was extended anteriorly and posteriorly with manual extraction. Entry into the amniotic sac revealed clear fluid. There was difficulty delivering baby since baby buttocks were wedged in the pelvis; the buttocks were finally able to be delivered through the hysterotomy. Fundal pressure was continued, and both legs were extended using routine maneuvers and with gentle pressure, legs and body gradually delivered. Once the scapula could be seen, the baby was gently rotated and both arms were delivered using routine maneuvers, and then the head was delivered without difficulty. The cord was clamped right away twice and then cut, and the baby was handed to awaiting CAMP PROGRAM DIRECTOR. Cord gases as well as cord bloods were obtained. The placenta was then delivered spontaneously intact with 3-vessel cord. The uterus was then exteriorized, and cleared of all blood clots and debris. There was extension noted on the left side of the hysterotomy and this was repaired using 0 Vicryl. Uterine incision was then closed in 2 layers. The first layer was a locking stitch of 0 Vicryl, and hemostasis was noted. Second layer was an imbricating layer of 0 Vicryl, and, again, hemostasis was noted. Uterus was then placed back into the abdomen. Gutters were cleared of all blood clots and debris. Hysterotomy incision was inspected and there was noted to be some oozing. Two [id number] stitches of 0 Vicryl were used, and hemostasis was achieved. Surgifoam was then placed on the hysterotomy incision for further hemostasis. Rectus muscles were then reapproximated in the midline using 2-0 Vicryl. Fascia was then closed with a running suture of 0 Vicryl. Hemostasis noted. The skin was closed with 4-0 Vicryl on a Abel needle. At the end of the procedure, all sponge, instrument and needle counts were correct x2. Patient tolerated the procedure well. No complications. The patient was stable at the completion of the procedure and was taken to PACU in stable condition. IV FLUIDS: 1700 cc LR. URINE OUTPUT: 100 cc of clear urine at the end of the procedure/ /[id number]/MODL MTDD
[2018-07-06] MEDS: ACETAMINOPHEN 325 MG TAB PO SCH (19:27)
[2018-07-06] MEDS: SENNOSIDES/DOCUSATE SODIUM TAB PO SCH (23:13)
[2018-07-07] MEDS: KETOROLAC 30 MG/1 ML SDV IVP SCH ×2 (03:20→09:30)
[2018-07-07] MEDS: ACETAMINOPHEN 325 MG TAB PO SCH ×4 (03:20→21:14)
[2018-07-07] MEDS: THYROID 15 MG PO SCH (08:14)
--- NOTE | 2018-07-07 08:33 | PDPAINCON ---
Pain Management Consultation Patient referred by : Steven - Subjective Pain is: low, well controlled Side effects include: itchiness (mild), No nausea Activity: able to ambulate - Objective Technique: spinal opioid (IT morphine) Sensory and motor exam: block has resolved, no apparent ill effects Vital signs: stable - Assessment/Plan Assessment/Plan: pain well-controlled, continue current mgmt Additional comments: POD 1 s/p C/S with IT morphine and TAP blocks, denies any adverse effects aside from mild pruritus. Tolerating PO, ambulating, denies N/V/ headaches.
[2018-07-07] MEDS: PRENATAL DHA PO SCH (09:33)
[2018-07-07] MEDS: Lactobacillus Acidophilus [Probiotic] 1 EACH PO SCH (09:35)
[2018-07-07] MEDS: ZINC GLUCONATE 30 MG PO SCH (09:36)
[2018-07-07] MEDS: SELENIUM 0.2 MG TAB PO SCH (09:38)
[2018-07-07] MEDS: SENNOSIDES/DOCUSATE SODIUM TAB PO SCH (09:41)
--- NOTE | 2018-07-07 09:45 | OBPP ---
Progress Note Assessment/Plan: Assessment: 32 G1 now P1 POD#1 s/p primary LTCS at 33w0d in setting of labor and tranvserse presentation. Doing well. Anemia. Plan: Continue routine post op cares. Encourage ambulation and discontinue urinary catheter soon. Start po iron. Rosemarie Barakat MD, FACOG 07/07/18 09:43 Subjective/ Course: 07/07/18 11:00 Pt doing well. Minimal discomfort. Has eaten this morning without nausea. Was a little lightheaded earlier when standing at baby's bedside, so urinary catheter is still in place. Objective: 07/07/18 06:20 Patient ABO/Rh A POSITIVE 07/03/18 11:45 Group B Strep DNA NEGATIVE (NEGATIVE) 07/03/18 11:30 Temp Pulse Resp BP Pulse Ox 36.3 C 83 16 91/63 L 97 07/07/18 08:09 07/07/18 08:09 07/07/18 08:09 07/07/18 08:09 07/07/18 08:09 Intake and Output 07/06/18 07/07/18 07/07/18 17:59 05:59 17:59 Intake Total 790 1250 Output Total 375 800 Balance 415 450 Intake: Oral (ml) 240 500 IV Intake (ml) 550 750 Output: Urine (ml) 375 800 Catheter 375 800 gen - pleasant, NAD CV - RRR chest - CTAB abd - soft, + BS, fundus firm at u-2 dressing - intact, a corner lifted and underlying dressing is saturated with serosanguinous drainage. Incision appears intact. ext - trace BLE, no calf tenderness bilaterally Uterine Position/Fundal Height: Umbilicus -2 Uterine Tone: Firm
[2018-07-07] MEDS: DOCUSATE SODIUM 100 MG CAP PO SCH (11:08)
[2018-07-07] MEDS: IBUPROFEN 600 MG TAB PO SCH ×2 (15:24→21:14)
[2018-07-07] MEDS: oxyCODONE IR 5 MG TAB PO PRN ×2 (18:53→20:30)
[2018-07-07] MEDS: FERRO-SEQUELS 65 MG TAB.ER PO SCH (21:13)
[2018-07-08] MEDS: oxyCODONE IR 5 MG TAB PO PRN ×4 (00:28→19:52)
[2018-07-08] MEDS: IBUPROFEN 600 MG TAB PO SCH ×4 (03:33→21:26)
[2018-07-08] MEDS: ACETAMINOPHEN 325 MG TAB PO SCH ×4 (03:34→21:26)
[2018-07-08] MEDS: FERRO-SEQUELS 65 MG TAB.ER PO SCH ×2 (09:32→19:51)
[2018-07-08] MEDS: PRENATAL DHA PO SCH (09:45)
[2018-07-08] MEDS: SELENIUM 0.2 MG TAB PO SCH (09:46)
[2018-07-08] MEDS: ZINC GLUCONATE 30 MG PO SCH (09:46)
[2018-07-08] MEDS: Lactobacillus Acidophilus [Probiotic] 1 EACH PO SCH (09:46)
[2018-07-08] MEDS: PRENATAL VIT 1 EACH TAB PO SCH (11:32)
[2018-07-08] MEDS: THYROID 15 MG PO SCH (12:28)
--- NOTE | 2018-07-08 23:21 | OBPP ---
Progress Note Assessment/Plan: Assessment: ppd# 2 s/p pltcs for labor and malpresentation anemia pumping Plan: 07/08/18 23:18 Subjective/ Course: 07/07/18 11:00 Pt doing well. Minimal discomfort. Has eaten this morning without nausea. Was a little lightheaded earlier when standing at baby's bedside, so urinary catheter is still in place. 07/08/18 23:20 patient is doing well. pain is well controlled. normal lochia. passing gas and had a bowel movement. denies headache and changes in vision. ambulating. pumping. baby doing well. Objective: 07/07/18 06:20 Patient ABO/Rh A POSITIVE 07/03/18 11:45 Group B Strep DNA NEGATIVE (NEGATIVE) 07/03/18 11:30 Temp Pulse Resp BP Pulse Ox 36.6 C 78 16 109/64 98 07/08/18 20:00 07/08/18 20:00 07/08/18 20:00 07/08/18 20:00 07/08/18 20:00 Physical Exam - Physical Exam Neck: non-tender, full range of motion Respiratory: chest non-tender, lungs clear, normal breath sounds Cardiac/Chest: normal peripheral pulses, regular rate, rhythm Abdomen: normal bowel sounds, non-tender Extremities: normal range of motion, non-tender, normal inspection, normal capillary refill Skin: normal color, warm/dry, other (incision clean dry and intact) Neuro/Psych: no motor/sensory deficits, alert, normal mood/affect, oriented x 3
[2018-07-09] MEDS: oxyCODONE IR 5 MG TAB PO PRN ×2 (00:28→07:01)
[2018-07-09] MEDS: IBUPROFEN 600 MG TAB PO SCH ×2 (03:20→10:49)
[2018-07-09] MEDS: ACETAMINOPHEN 325 MG TAB PO SCH ×3 (03:20→15:21)
[2018-07-09] MEDS ORDERED: THYROID 15 MG PO SCH (08:00)
[2018-07-09 08:18] VITALS: BP 102/72
[2018-07-09] MEDS ORDERED: NP THYROID 15 MG PO SCH (09:00)
[2018-07-09] MEDS: FERRO-SEQUELS 65 MG TAB.ER PO SCH (10:48)
[2018-07-09] MEDS: PRENATAL VIT 1 EACH TAB PO SCH (10:48)
[2018-07-09] MEDS: Lactobacillus Acidophilus [Probiotic] 1 EACH PO SCH (10:53)
[2018-07-09] MEDS: ZINC GLUCONATE 30 MG PO SCH (10:53)
[2018-07-09] MEDS: SELENIUM 0.2 MG TAB PO SCH (10:54)
[2018-07-09] MEDS: PRENATAL DHA PO SCH (10:54)
--- NOTE | 2018-07-09 12:50 | OBGCSDC ---
General Delivery Information - General Info : 1 Para: 1 Abortions: 0 Type: Primary L&D Analgesia/Anesthesia Type: Spinal Admission Date: 07/03/18 Labs: Patient ABO/Rh A POSITIVE 07/03/18 11:45 Hct 31.0 % (38.0-47.0) L 07/07/18 06:20 Group B Strep DNA NEGATIVE (NEGATIVE) 07/03/18 11:30 Temp Pulse Resp BP Pulse Ox 07/09/18 08:16 36.5 C 71 14 102/72 97 07/08/18 20:00 36.6 C 78 16 109/64 98 07/08/18 16:29 37.4 C 74 16 92/61 L 96 - Hospital Course Intrapartum: Jasmine is in good spirits this morning - happily reports that she really can't feel her contractions at all. Maybe a rare uncomfortable ctx, but otherwise quite comfortable. Tolerating the nifedipine quite well also, really no GILLESPIE or side effects. : 07/07/18 11:00 Pt doing well. Minimal discomfort. Has eaten this morning without nausea. Was a little lightheaded earlier when standing at baby's bedside, so urinary catheter is still in place. 07/08/18 23:20 patient is doing well. pain is well controlled. normal lochia. passing gas and had a bowel movement. denies headache and changes in vision. ambulating. pumping. baby doing well. - Delivery Providers Surgeon: Danay Harris Regulatory Compliance Officer: Natalya Gee Anesthesiologist: Cinthia Nieves - Delivery Number of Prior Sections: 0 Indications for Current Section: Abnormal Lie (u/s confirmed transverse lie, back up), Other (Specify) (Spontaneous labor at 33 weeks) Surgical Procedures: Unscheduled, Low Transverse Intra-op Complications: None EBL: 800cc UO: 100 cc clear urine at end Data REMEDIOS: 08/24/18 Gestational Age: 33 week(s) and 3 day(s) [facility] Delivery Date: 07/06/18 Delivery Time: 14:54 Sex of Infant: Male [place] Weight (gm): 2270 g Score (1 Min): 1 Score (5 Min): 8 Discharge Information - Discharge Information Prescriptions: oxyCODONE IR [Oxycodone Ir (*)] 5 mg PO Q4HRS PRN #10 tab PRN Reason: Pain, Severe Able To Take Po Condition: Good Instruction/Follow Up: See Instruction Sheet, Two Weeks (with therapist and AR) , Six Weeks (AR)
--- NOTE | 2018-07-09 13:57 | OBPP ---
Progress Note Assessment/Plan: Assessment: POD 3 s/p primary c/s for labor desires d/c anemia Plan: d/c to boarder status, cont iron daily 07/09/18 13:53 Subjective/ Course: 07/07/18 11:00 Pt doing well. Minimal discomfort. Has eaten this morning without nausea. Was a little lightheaded earlier when standing at baby's bedside, so urinary catheter is still in place. 07/08/18 23:20 patient is doing well. pain is well controlled. normal lochia. passing gas and had a bowel movement. denies headache and changes in vision. ambulating. pumping. baby doing well. 07/09/18 13:57 Pt doing well and desires d/c to boarder status. has been pumping and getting some colostrum/milk. rec increased fluids. pain is controlled mainly by ibu/ tyl but is using approx one oxy/day. bld is light. urinating fine. had small bm yesterday. disc pumping schedule to optimize mood health and sleep Objective: 07/07/18 06:20 Patient ABO/Rh A POSITIVE 07/03/18 11:45 Group B Strep DNA NEGATIVE (NEGATIVE) 07/03/18 11:30 Temp Pulse Resp BP Pulse Ox 36.5 C 71 14 102/72 97 07/09/18 08:16 07/09/18 08:16 07/09/18 08:16 07/09/18 08:16 07/09/18 08:16 Uterine Position/Fundal Height: Umbilicus -2 Uterine Tone: Firm Physical Exam - Physical Exam Abdomen: non-tender (approp post op tenderness), soft, incision (CDI) Extremities: non-tender, pedal edema (minimal) Skin: normal color, warm/dry Neuro/Psych: alert, normal mood/affect
== END 2018-07-09 12:30 | disposition home or self-care (01) | DRG 788 ==
LOC: FLD 10:00 → OBSVTOIN 11:03 → FLD 07-06 14:25 → FOB 07-06 17:53
PROVIDERS: ADMIT Advanced Practice Midwife; ATTEND Obstetrics & Gynecology
PROC: 10D00Z1 Extraction of Products of Conception, Low, Open Approach (ICD-10-PCS; principal; 2018-07-03)
DX: O60.14X0 Preterm labor third trimester with preterm delivery third trimester, not applicable or unspecified (principal); O32.1XX0 Maternal care for breech presentation, not applicable or unspecified; O76 Abnormality in fetal heart rate and rhythm complicating labor and delivery; O99.283 Endocrine, nutritional and metabolic diseases complicating pregnancy, third trimester; E03.9 Hypothyroidism, unspecified; Z3A.33 33 weeks gestation of pregnancy; Z37.0 Single live birth
CPT/HCPCS: J0456; J0690; J0702; J1885; J2274; J2370; J2590; J2780; J3105